=== PATIENT | female | born 1985 | race Hispanic/Latino ===

== ENCOUNTER 2018-10-07 03:26 | Emergency (ER) | payer SELFPAY ==
[2018-10-07 03:51] VITALS: RESP 18; TEMP 98.5
--- NOTE | 2018-10-07 04:02 | ED PDOC ---
Arrival/HPI - General Historian: Patient - History of Present Illness Narrative History of Present Illness (Text): 10/07/18 04:02 Patient is a 33 year old female with no significant past medical history who presents to the emergency department for left upper/mid back pain that started 5 days ago. Patient states that this has never happened to her before and she denies any trauma. Pain is constant, non-radiating. She has tried icy-hot patch and advil at home with no relief in symptoms. Deep breathing makes the pain worse. Currently she rates the pain a 9/10 on pain scale. She states that she has had a non-productive cough x 2 days. She denies fevers, chills, nausea, vomiting, chest pain, palpitations, sob, abdominal pain, dysuria, changes in bowel habits. Allergies: NKDA Medications: Denies Medical History: Denies Surgical History: Adenoid removal Social History: Smokes 1ppd, denies alcohol or drug use Family History: Diabetes Mellitus, Hypertension Time/Duration: < week Symptom Onset: Gradual Symptom Course: Worsening Severity Level: 9, Moderate <Nori Bonilla - Last Filed: 10/07/18 04:40> <Tacho Borrego - Last Filed: 10/07/18 04:42> - General Chief Complaint: Back Pain Time Seen by Provider: 10/07/18 03:35 Past Medical History - Provider Review Nursing Documentation Reviewed: Yes - Past History Past History: No Previous - Past Medical History Past Medical History: No Previous - Psychiatric Hx Substance Use: No <Nori Bonilla - Last Filed: 10/07/18 04:40> Family/Social History - Physician Review Nursing Documentation Reviewed: Yes Family/Social History: Diabetes, Hypertension Smoking Status: Light Smoker < 10 Cigarettes Daily Hx Alcohol Use: No Hx Substance Use: No <Nori Bonilla - Last Filed: 10/07/18 04:40> Allergies/Home Meds <Nori Bonilla - Last Filed: 10/07/18 04:40> <Tacho Borrego - Last Filed: 10/07/18 04:42> Allergies/Adverse Reactions: Allergies No Known Allergies Allergy (Verified 10/07/18 03:34) Review of Systems - Review of Systems Constitutional: Normal. absent: Fatigue, Fevers Eyes: Normal. absent: Vision Changes ENT: Normal. absent: Hearing Changes Respiratory: SOB, Cough Cardiovascular: Normal. absent: Chest Pain, Palpitations, Edema, Calf Pain Gastrointestinal: Normal. absent: Abdominal Pain, Constipation, Diarrhea, Nausea, Vomiting, Hematemesis Genitourinary Female: Normal. absent: Dysuria, Frequency, Hematuria Musculoskeletal: Back Pain. absent: Neck Pain Skin: Rash Neurological: absent: Headache <ChadNori guillen - Last Filed: 10/07/18 04:40> Physical Exam Vital Signs Reviewed: Yes Vital Signs Temp Pulse Resp BP Pulse Ox 10/07/18 03:50 98.5 F 84 18 115/72 97 Temperature: Afebrile Blood Pressure: Normal Pulse: Regular Respiratory Rate: Normal Appearance: Positive for: Well-Appearing, Non-Toxic Pain Distress: Mild Mental Status: Positive for: Alert and Oriented X 3 - Systems Exam Head: Present: Atraumatic, Normocephalic Pupils: Present: PERRL Extroacular Muscles: Present: EOMI Mouth: Present: Moist Mucous Membranes Neck: Present: Normal Range of Motion Respiratory/Chest: Present: Clear to Auscultation, Decreased Breath Sounds (Bilateral lower lung irving) Cardiovascular: Present: Regular Rate and Rhythm, Normal S1, S2 Abdomen: Present: Normal Bowel Sounds. No: Tenderness, Distention Back: Present: Other (Tenderness to left scapular region) Upper Extremity: Present: Normal Inspection Lower Extremity: Present: Normal Inspection Neurological: Present: GCS=15 Skin: Present: Warm, Dry, Rashes (vesicular rash on chest), Normal Color Psychiatric: Present: Alert, Oriented x 3 <ChadNori - Last Filed: 10/07/18 04:40> Vital Signs Temp Pulse Resp BP Pulse Ox 10/07/18 03:50 98.5 F 84 18 115/72 97 <Tacho Borrego - Last Filed: 10/07/18 04:42> Medical Decision Making ED Course and Treatment: 10/07/18 04:00 Patient seen and examined at bedside. Patient complaining of worsening left upper/mid back pain for past 5 days. On exam, patient with tenderness to left scapula region that is reproducible, decreased breath sounds at bilateral lung bases. PERC rule for pulmonary embolism is 0. Plan - CXR (PA/LAT) - Toradol 60mg IM x 1 10/07/18 04:34 Imaging reviewed. Patient with reproducible musculoskeletal back pain. Prescription for Motrin 600mg Q6H prn pain given. Patient instructed to follow up with PMD within 2-3 days. - RAD Interpretation Narrative RAD Interpretations (Text): 10/07/18 04:34 CXR: No active disease Radiology Orders: 10/07/18 03:57 CXR (PA/LAT) [CHEST TWO VIEWS (PA/LAT)] [RAD] Stat Continuous Drier Helper: ED Physician - Medication Orders Current Medication Orders: Ketorolac Tromethamine (Toradol) 60 mg IM STAT STA Stop: 10/07/18 03:58 <Nori Bonilla - Last Filed: 10/07/18 04:40> ED Course and Treatment: Seen and examined with resident. 33 y/o F p/w thoracic pain. On exam, reproducible tenderness without respiratory distress. - RAD Interpretation Radiology Orders: 10/07/18 03:57 CXR (PA/LAT) [CHEST TWO VIEWS (PA/LAT)] [RAD] Stat - Medication Orders Current Medication Orders: Discontinued Medications Ketorolac Tromethamine (Toradol) 60 mg IM STAT STA Stop: 10/07/18 03:58 Last Admin: 10/07/18 04:10 Dose: 60 mg MAR Pain Assessment Document 10/07/18 04:10 JOL (Rec: 10/07/18 04:10 JOL [id number]) Pain Reassessment Is this a pain reassessment? No Sleep Is patient sleeping during reassessment? No Presence of Pain Presence of Pain Yes Pain Scale Used Protocol: PSCALES Pain Scale Used Numeric Location Left, Right or Bilateral Left Upper or Lower Upper Pain Location Body Site Back Description Intensity of Pain at present 7 IM Administration Charges Document 10/07/18 04:10 JOL (Rec: 10/07/18 04:10 JOL [id number]) Injection Site MAR Injection Site Left Deltoid Charges for Administration # of IM Administrations 1 <Tacho Borrego - Last Filed: 10/07/18 04:42> Disposition/Present on Arrival - Present on Arrival Any Indicators Present on Arrival: No History of DVT/PE: No History of Uncontrolled Diabetes: No Urinary Catheter: No History of Decub. Ulcer: No History Surgical Site Infection Following: None - Disposition Have Diagnosis and Disposition been Completed?: Yes Disposition Time: 04:35 Patient Plan: Discharge <Nori Bonilla - Last Filed: 10/07/18 04:40> <SalimaTacho Lukas - Last Filed: 10/07/18 04:42> - Disposition Diagnosis: Musculoskeletal back pain Disposition: HOME/ ROUTINE Patient Problems: Current Active Problems Problem Status Onset Musculoskeletal back pain Acute Condition: GOOD Discharge Instructions (ExitCare): Upper Back Pain Prescriptions: Ibuprofen [Motrin] 600 mg PO Q6H PRN #20 tab PRN Reason: Pain, Moderate (4-7) Forms: [facility] (Slovenian)
[2018-10-07 05:16] VITALS: BP 118/64; PULSE 82; O2SAT 98
--- NOTE | 2018-10-07 12:50 | RAD ---
Date of service: 10/07/2018 HISTORY: back pain COMPARISON: No prior. TECHNIQUE: Chest PA and lateral FINDINGS: LUNGS: No active pulmonary disease. PLEURA: No significant pleural effusion identified. No pneumothorax apparent. CARDIOVASCULAR: No aortic atherosclerotic calcification present. Normal cardiac size. No pulmonary vascular congestion. OSSEOUS STRUCTURES: No significant abnormalities. VISUALIZED UPPER ABDOMEN: Normal. OTHER FINDINGS: None. IMPRESSION: No active disease.
== END 2018-10-07 04:40 | disposition home or self-care (01) ==
LOC: ED 03:26
DX: M54.6 Pain in thoracic spine (principal); F17.210 Nicotine dependence, cigarettes, uncomplicated; Z82.49 Family history of ischemic heart disease and other diseases of the circulatory system
CPT/HCPCS: 71046; 96372; 99284; J1885

== ENCOUNTER 2019-01-23 04:37 | Emergency (ER) | payer OTHER, MEDICAID ==
[2019-01-23 04:47] VITALS: RESP 18
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
[2019-01-23 06:22] VITALS: BP 133/71; PULSE 82; TEMP 98.5; O2SAT 98
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
== END 2019-01-23 06:22 | disposition home or self-care (01) ==
LOC: ED 04:37
DX: S20.212A Contusion of left front wall of thorax, initial encounter (principal); V49.40XA Driver injured in collision with unspecified motor vehicles in traffic accident, initial encounter; Y92.410 Unspecified street and highway as the place of occurrence of the external cause